=== PATIENT | male | born 1960 | race Two or more races ===

== ENCOUNTER 2017-12-14 16:00 | Emergency (ER) | payer OTHER ==
[~2017-12-14] VITALS: Ht 172.7 cm; Wt 99.8 kg
[2017-12-14 16:35] LABS: BASOPHILS % (AUTO) 0.3 % (0.0-2.0); EOSINOPHILS # (AUTO) 0.1 K/uL (0.0-0.7); EOSINOPHILS % (AUTO) 0.8 % (0.0-7.0); LYMPHOCYTES # (AUTO) 2.9 K/uL (20.0-40.0); LYMPHOCYTES % (AUTO) 37.5 % (20.5-51.5); MONOCYTES # (AUTO) 0.5 K/uL (2.0-10.0); MONOCYTES % (AUTO) 6.6 % (0.0-11.0); NEUTROPHILS # (AUTO) 4.2 K/uL (1.8-8.9); NEUTROPHILS % (AUTO) 54.8 % (38.5-71.5); PLATELET COUNT (AUTO) 211 K/uL (152-348)
[2017-12-14 16:43] LABS: CARBON DIOXIDE 29 mmol/L (21-32); CHLORIDE 100 mmol/L (98-107); CREATININE 0.5 mg/dL (0.6-1.3); GLUCOSE 117 mg/dL (74-106); HEMATOCRIT 35.9 % (36.7-47.1); HEMOGLOBIN 12.7 g/dL (12.5-16.3); MEAN CORPUSCULAR VOLUME 87.5 fL (73.0-96.2); POTASSIUM 3.1 mmol/L (3.5-5.1); UREA NITROGEN, BLOOD 6 mg/dL (7-18); WHITE BLOOD COUNT (AUTO) 7.9 K/uL (3.6-10.2)
[2017-12-14 16:44] LABS: MEAN CORPUSCULAR HGB CONC 35 g/dL (32.5-36.3)
[2017-12-14 16:49] LABS: ALANINE AMINOTRANSFERASE 27 U/L (16-63); ALKALINE PHOSPHATASE 81 U/L (50-136); ASPARTATE AMINOTRANSFERASE 22 U/L (15-37); BILIRUBIN,DIRECT 0.1 mg/dL (0.0-0.2); BILIRUBIN,TOTAL 0.5 mg/dL (0.2-1.0); TOTAL PROTEIN, SERUM 6.9 g/dL (6.4-8.2)
[2017-12-14 16:51] LABS: ACETAMINOPHEN < 2.0 ug/mL (10-30)
[2017-12-14 16:52] LABS: ETHANOL 295 MG/DL (0-0)
[2017-12-14 17:11] LABS: *BILIRUBIN,URIN NEGATIVE (NEGATIVE); *BLOOD, URINE NEGATIVE (NEGATIVE); *CLARITY,URINE CLEAR (CLEAR); *COLOR,URINE YELLOW (YELLOW); *KETONES,URINE NEGATIVE (NEGATIVE); *PROTEIN,URINE NEGATIVE (NEGATIVE); *UROBILINOGEN,URINE 0.2 E.U./dl (NORMAL); LEUKOCYTE ESTERASE ,URINE NEGATIVE (NEGATIVE); NITRITE, URINE NEGATIVE (NEGATIVE); UGLUCOSE NEGATIVE (NEGATIVE)
[2017-12-14 17:16] LABS: *AMPHETAMINE, URINE NEGATIVE (NEGATIVE); *BARBITURATE, URINE NEGATIVE (NEGATIVE); *CANNABINOID, URINE NEGATIVE (NEGATIVE); *COCCAINE, URINE NEGATIVE (NEGATIVE); *OPIATE, URINE NEGATIVE (NEGATIVE); *PHENCYCLIDINE SCREEN,URINE NEGATIVE (NEGATIVE)
[2017-12-14 17:23] LABS: WBC,URINE 0-3 /HPF (0-3)
--- NOTE | 2017-12-14 18:23 | NUR ---
pt resting. no sign of distress.
[2017-12-14] MEDS ORDERED: POTASSIUM CHLORIDE 20 MEQ TAB.PRT.SR PO ONE (18:30)
--- NOTE | 2017-12-14 19:10 | NUR ---
hands off report given to justin hammer
--- NOTE | 2017-12-14 19:12 | NUR ---
REPORT TAKEN FROM ZHANE RANGEL.
--- NOTE | 2017-12-14 19:40 | NUR ---
PT RESTING IN BED W/ EYES CLOSED. BED IN LOWEST AND LOCKED POSITION. NO ACUTE DISTRESS NOTED. BREATHING EVEN AND UNLABORED. ALL PT NEEDS MET.
[2017-12-14] MEDS ORDERED: POTASSIUM CHLORIDE 20 MEQ TAB.PRT.SR ONE (20:12)
--- NOTE | 2017-12-14 21:20 | NUR ---
PT AWAKE AND USING URINAL INDEPENDENTLY. NO SIGNS OF DISTRESS NOTED.
[2017-12-14] MEDS ORDERED: LORAZEPAM 1 MG TABLET ONE (21:53)
[2017-12-14] MEDS ORDERED: LORAZEPAM 0.5 MG TABLET PO ONE (22:00)
--- NOTE | 2017-12-14 22:14 | NUR ---
PT PROVIDED WATER PER REQUEST. TOLERATED WELL. DENIES N/V AT THIS TIME.
--- NOTE | 2017-12-14 23:50 | NUR ---
PT USING URINAL INDEPENDENTLY. NO SIGNS OF DISTRESS NOTED. DENIES PAIN AND N/V.
--- NOTE | 2017-12-15 01:54 | NUR ---
PT RESTING IN BED W/ EYES CLOSED. BREATHING EVEN AND UNLABORED. NO SIGNS OF DISTRESS NOTED.
--- NOTE | 2017-12-15 02:15 | NUR ---
PT AMBULATED TO BATHROOM W/ STEADY GAIT. NO DISTRESS NOTED.
--- NOTE | 2017-12-15 04:26 | NUR ---
LAB AT BEDSIDE FOR BLOOD DRAW.
--- NOTE | 2017-12-15 05:30 | NUR ---
ART CALLED FOR CRISIS EVAL.
--- NOTE | 2017-12-15 06:22 | NUR ---
ART AT PT BEDSIDE FOR CRISIS EVAL.
--- NOTE | 2017-12-15 06:54 | NUR ---
Patient discharged to home in stable conditon. Written and verbal after care instructions given. Patient verbalizes understanding of instructions. PT took all personal belongings. PT ambulated from ER w/ steady gait. No signs of distress noted. Denies SI at this time.
[2017-12-15 06:59] VITALS: BP 112/78
== END 2017-12-15 06:59 | disposition home or self-care (01) ==
LOC: ER 16:02
DX: F10.129 Alcohol abuse with intoxication, unspecified (principal); I10 Essential (primary) hypertension; E78.00 Pure hypercholesterolemia, unspecified; Z59.0 Homelessness
CPT/HCPCS: 36415; 70030-TC; 70450; 71045; 80307; 85025; 93005; A4663; G0480; G0480-TC